=== PATIENT | female | born 1960 | race Caucasian/White ===

== ENCOUNTER 2024-08-11 14:48 | Outpatient (CLI) | payer OTHER | END 2024-08-11 14:51 | disposition home or self-care (01) | LOC: RAD 14:48 | PROVIDERS: ATTEND Internal Medicine | DX: M15.0 Primary generalized (osteo)arthritis (principal) ==

== ENCOUNTER 2024-08-22 11:02 | Outpatient (CLI) | payer OTHER | END 2024-08-22 11:07 | disposition home or self-care (01) | LOC: MAMO-SONO 11:02 | PROVIDERS: ATTEND Obstetrics & Gynecology | DX: N60.11 Diffuse cystic mastopathy of right breast (principal); N60.12 Diffuse cystic mastopathy of left breast ==

== ENCOUNTER 2025-04-19 11:37 | Outpatient (CLI) | payer OTHER | END 2025-04-19 11:39 | disposition home or self-care (01) | LOC: RAD 11:37 | PROVIDERS: ATTEND Internal Medicine | DX: M54.2 Cervicalgia (principal); M54.6 Pain in thoracic spine; M54.17 Radiculopathy, lumbosacral region ==